=== PATIENT | male | born 1970 | race Caucasian/White ===

== ENCOUNTER 2016-05-14 10:02 | Emergency (ER) | payer OTHER, BC ==
[~2016-05-14 10:02] MED LIST: ALBUTEROL INHALER IH; ATIVAN-DPS0.5 MG PO; BACTRIM DS DPS1 TAB PO; CYMBALTA60 MG PO; DELTASONE DPS10 MG PO; DELTASONE DPS20 MG PO; DULERA 200/58.8 GM IH; DUONEB DPS3 ML IH; HABITROL DPS21 MG TD; LORTAB 5-325 M1 EACH PO; MINOCIN100 MG PO; NILSTAT SUSP DPS5 ML PO; SYMBICORT 16010.2 GM IH; ULTRAM DPS50 MG PO; VANCOCIN-DPS500 MG IV
--- NOTE | 2016-05-22 19:43 | ER ---
ADMIT: 05/14/2016 RM/LOC: [facility] MR#: [id number] [address] [id number] JEF GARLAND [address] [place] [address] Emergency Room Report SEX: M AGE: 45 : 1970 DATE: 05/14/2016 ADDENDUM: CHIEF COMPLAINT: Left arm pain and coughing up blood. 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 He had several rounds of antibiotics to get that infection under control and it is presumed he might have had some seeding of bacteria into his lungs at that time. From my understanding, that was never definitively confirmed however. He has had problems with hemoptysis in the past. It has been worked up for possible TB and his workups have always been negative. He states that his symptoms of coughing up blood are not new for him, this has been going on for many months now, and it is intermittent in nature. He also states he has this pain in his left forearm, it has been there for months on, but he just felt like the pain is worse today and wanted to come and get it checked out. He denies any fevers or chills. PAST MEDICAL HISTORY: Significant for: 1. Nocardia infection. 2. COPD. PREVIOUS SURGERIES: 1. Left forearm surgery for debridement of the wound. 2. Left shoulder surgery. MEDICATIONS: 1. Tylenol. 2. Albuterol. ALLERGIES: PENICILLIN. SOCIAL HISTORY: The patient denies smoking, drug, or alcohol use. PHYSICAL EXAMINATION: See T-sheet for complete exam. Focused exam of left forearm reveals there is a well-healed scar on his left forearm. There are no signs of obvious infections. No erythema or warmth. There is no swelling I can appreciate. He does have pain with range of motion of the wrist and some ADMIT: 05/14/2016 RM/LOC: [facility] MR#: [id number] [facility] [address] [id number] JEF GARLAND [address] [place] [address] Emergency Room Report SEX: M AGE: 45 : 1970 with the elbow. It is slightly tender with palpation of the forearm. He has good pulse and sensation is intact, other than he has some numbness in his 4th and 5th digit on the left hand which has been present since his injury nearly two years ago. Pulmonary exam was unremarkable. LABORATORY DATA: CBC was normal. Chemistries are normal. CRP was normal. There was an error in the lab and the results of sedimentation rate is still pending. Chest x-ray showed nothing acute. X-ray of the left forearm showed no involvement of bone I could appreciate. No gas-forming. DISPOSITION: The patient is discharged home with a diagnosis of chronic left arm pain and was given a prescription for some Parrish, to use ibuprofen and to follow up with Dr. Ybarra. Temo Frost MD/ taylor JOB #: [id number] CC: Temo Frost MD, Attending Physician
== END 2016-05-14 11:55 | disposition home or self-care (01) ==
LOC: ER 10:02
DX: M79.602 Pain in left arm (principal); G89.29 Other chronic pain; Z88.0 Allergy status to penicillin; Z79.899 Other long term (current) drug therapy

== ENCOUNTER → 2016-06-21 | Outpatient (CLI) | payer BC ==
--- NOTE | ~2016-06-21 | ECH ---
Transthoracic Echocardiography Report (TTE) Demographics Patient Name JEF GARLAND Date of Study 06/21/2016 L Patient Number [id number] Visit Number [id number] Date of 1970 Room Number Accession Number [id number] Gender Male Age 45 year(s) Referring Tate Gaytan Wheel Mill Operator Shirlene Parsons [facility] Physician Physician Interpreting King Bennie Ferraro MD Mill Work Physician Supervising Ordering Physician Tate Gaytan MD/RAULP Nurse Stress Printer'S Assistant Conclusions Summary Technically fair exam. The estimated left ventricular ejection fraction is 60-65%. Mild left ventricular hypertrophy. Procedure Type of Study TTE procedure:Echo Complete SF. Procedure Date Date: 06/21/2016 Start: 12:00 Technical Quality: Adequate visualization Indications:Syncope. Appropriate Use Criteria: 9 Height: 69 inches Weight: 240 pounds BSA: 2.23 m Rhythm: Within normal limits HR: 65 bpm BP: 132/80 mmHg M-Mode/2D Measurements LV Diastolic Dimension: 5.18 cm LV Systolic Dimension: 3.13 cm LV Septum Diastolic: 1.34 cm LV PW Diastolic: 1.24 cm AO Root Dimension: 2.38 cm Cardiac Output: 7.07 l/min LA Dimension: 3.76 cm Cardiac Index: 3.17 l/min*m RV Diastolic Dimension: 3.17 cm LA volume index: 25 ml/m LVOT: 2.45 cm LVOT VTI: 23.09 cm RV Base: 3.5 cm LV Stroke volume: 108.8 ml RV Mid: 2.8 cm LV Stroke volume index: 48.79 ml/m RV Length: 6.3 cm TAPSE: 2.6 cm TDI-S': 14 cm/s Doppler Measurements AV Peak Velocity: 1.37 m/s MV Peak E-Wave: 0.96 m/s AV Peak Gradient: 7.51 mmHg MV Peak A-Wave: 0.78 m/s AV Mean Gradient: 4.1 mmHg MV E/A Ratio: 1.23 LVOT Peak Velocity: 1.26 m/s MV P1/2t: 60.1 msec AV Area (Continuity):3.97 cm MV Deceleration Time: 207.2 msec MV Area (PHT): 3.66 cm PV Peak Velocity: 0.99 m/s PV Peak Gradient: 3.95 mmHg RA Area: 11.24 cm Findings Left Ventricle The left ventricle is normal in size . Mild left ventricular hypertrophy. Diastolic assessment reveals normal relaxation. Right Ventricle Normal right ventricle structure and function. Left Atrium Normal left atrial size. Right Atrium Normal right atrial size. Mitral Valve Normal mitral valve structure and function. Aortic Valve Normal aortic valve structure and function. Tricuspid Valve Normal tricuspid valve structure and function. Pulmonic Valve Normal pulmonic valve structure and function. Pericardial Effusion No evidence of pericardial effusion. Miscellaneous Visualized portions of the aortic root and ascending aorta appear normal in size. Pleural Effusion No evidence of pleural effusion. Contractility Score LV regional wall motion:(0-Non visualized 1-Normal 2-Hypokinesis 3-Akinesis 4-Dyskinesis 5-Aneurysm) Signature
== END | disposition home or self-care (01) ==
LOC: CARD 12:50
DX: R55 Syncope and collapse (principal); I51.7 Cardiomegaly